=== PATIENT | female | born 1995 | race Caucasian/White ===

== ENCOUNTER 2022-01-24 12:46 | Emergency (ER) | payer OTHER ==
[2022-01-24 13:34] LABS: BASOPHIL 0.5 % (0-2); EOSINOPHIL 1.5 % (0-5); HCT 39.8 % (37.0-47.0); HGB 14.3 g/dl (12.5-16.0); LYMPHOCYTE 29.5 % (15-48); MCH 29.8 pg (25.0-31.0); MCHC 35.9 g/dL (32.0-36.0); MCV 82.9 fL (78.0-100.0); MONOCYTE 8.6 % (0-12); MPV 10.9 fL (6.0-9.5); NEUTROPHIL 59.7 % (41-80); NRBC 0; PLT 321 K/uL (150-400); RDW 11.6 % (11.5-14.0); WBC 5.9 K/uL (4.0-10.5)
[2022-01-24 14:01] LABS: BILIRUBIN NEGATIVE (NEGATIVE); BLOOD NEGATIVE Ery/uL (NEGATIVE); COLOR YELLOW (YELLOW); GLUCOSE (U) TRACE mg/dL (NORMAL); LEUKOCYTES NEGATIVE Leu/uL (NEGATIVE); NITRITE NEGATIVE (NEGATIVE); PROTEIN NEGATIVE (NEGATIVE); UROBILINOGEN 0.2 mg/dL (0.2-1.0)
[2022-01-24 14:02] LABS: BUN/CREAT RATIO (CALC) 35.7 RATIO; CREATININE 0.42 mg/dL (0.51-0.95); POTASSIUM 3.9 mmol/L (3.5-5.1)
[2022-01-24 14:19] LABS: CLARITY HAZY (CLEAR)
[2022-01-24] MEDS ORDERED: BASAGLAR K100 UNIT/1 SC (15:00)
[2022-01-24] MEDS ORDERED: LEXAPRO20 MG PO (15:00)
[2022-01-24] MEDS ORDERED: LEVEMIR VI100 UNITS/ SC (15:00)
[2022-01-25] MEDS ORDERED: ONDANSETRON ODT4 MG PO (11:56)
[2022-01-25] MEDS ORDERED: BASAGLAR K100 UNIT/1 SC (11:56)
== END 2022-01-24 15:27 | disposition home or self-care (01) ==
LOC: FER 12:46
PROVIDERS: Nurse Practitioner Family
DX: E10.65 Type 1 diabetes mellitus with hyperglycemia (principal); R51.9 Headache, unspecified; Z76.0 Encounter for issue of repeat prescription
CPT/HCPCS: 36415; 80048; 81003; 82009; 85025; 99284; J7030

== ENCOUNTER 2022-01-25 07:00 | Emergency (ER) | payer OTHER ==
[~2022-01-25 07:00] MED LIST: BASAGLAR K100 UNIT/1 SC; LEVEMIR VI100 UNITS/ SC; LEXAPRO20 MG PO
[2022-01-25 09:00] LABS: BASOPHIL 0.7 % (0-2); EOSINOPHIL 2.6 % (0-5); HCT 37.4 % (37.0-47.0); HGB 13.1 g/dl (12.5-16.0); LYMPHOCYTE 32.2 % (15-48); MCH 29.9 pg (25.0-31.0); MCV 85.4 fL (78.0-100.0); MONOCYTE 8.7 % (0-12); MPV 11.2 fL (6.0-9.5); NEUTROPHIL 55.3 % (41-80); NRBC 0; PLT 244 K/uL (150-400); RBC 4.38 M/uL (4.20-5.40); RDW 11.8 % (11.5-14.0); WBC 4.2 K/uL (4.0-10.5)
[2022-01-25 09:53] LABS: ALBUMIN 3.3 g/dL (3.4-5.0); BILIRUBIN - TOTAL 0.4 mg/dL (0.2-1.0); BUN/CREAT RATIO (CALC) 26.2 RATIO; CREATININE 0.42 mg/dL (0.51-0.95); POTASSIUM 4.9 mmol/L (3.5-5.1); TOTAL PROTEIN 6.3 g/dL (6.4-8.2)
[2022-01-25 10:30] LABS: BILIRUBIN NEGATIVE (NEGATIVE); BLOOD NEGATIVE Ery/uL (NEGATIVE); CLARITY CLEAR (CLEAR); COLOR YELLOW (YELLOW); GLUCOSE (U) 3+ mg/dL (NORMAL); LEUKOCYTES NEGATIVE Leu/uL (NEGATIVE); NITRITE NEGATIVE (NEGATIVE); PROTEIN NEGATIVE (NEGATIVE); UROBILINOGEN 0.2 mg/dL (0.2-1.0)
[2022-01-25] MEDS ORDERED: BASAGLAR K100 UNIT/1 SC (11:56)
[2022-01-25] MEDS ORDERED: ONDANSETRON ODT4 MG PO (11:56)
== END 2022-01-25 12:55 | disposition home or self-care (01) ==
LOC: FER 07:00
PROVIDERS: Emergency Medicine
DX: E10.65 Type 1 diabetes mellitus with hyperglycemia (principal); Z79.4 Long term (current) use of insulin; Z28.310 Unvaccinated for COVID-19
CPT/HCPCS: 36415; 80053; 81003; 83036; 83690; 84145; 85025; 96372; J7030

== ENCOUNTER 2022-03-22 10:16 | Emergency (ER) | payer OTHER ==
[~2022-03-22 10:16] MED LIST changes: +ONDANSETRON ODT4 MG PO
== END 2022-03-22 13:55 | disposition home or self-care (01) ==
LOC: FER 10:16
DX: K58.0 Irritable bowel syndrome with diarrhea (principal); E11.9 Type 2 diabetes mellitus without complications; Z28.310 Unvaccinated for COVID-19; Z79.84 Long term (current) use of oral hypoglycemic drugs
CPT/HCPCS: 99283